=== PATIENT | female | born 1980 | race Caucasian/White ===

== ENCOUNTER → 2020-08-21 | Outpatient (CLI) | payer OTHER ==
--- NOTE | 2020-08-23 00:02 | ECWPNPC ---
PATIENT NAME: MAIDA CHILDS : 1980 GENDER: FEMALE VISIT DATE: 08/21/2020 DISCHARGE DATE: 08/21/20 0000 VISIT LOCKED DATE TIME: PHYSICIAN: LISA ERICKSON RESOURCE: LISA ERICKSON REASON FOR APPOINTMENT 1. LOW BACK.NECK,FIBRO,OSTEOARTHRITIS HISTORY OF PRESENT ILLNESS GENERAL: - - -. FALL RISK SCREENING: SCREENING : NO FALLS REPORTED IN THE LAST YEAR , : NO FALLS REPORTED IN THE LAST YEAR. PAIN SCREENING: PATIENT HAS A COMPLAINT OF ACUTE OR CHRONIC PAIN :YES LOCATION OF PAIN:NECK, LOW BACK INTENSITY OF PAIN (SCALE OF 1 TO 10):10 WHAT DOES YOUR PAIN FEEL LIKE:ACHING, CONTINOUS, SHARP, STABBING DURATION:CONTINOUS, CONSTANT PAIN IS INCREASED BY:ACTIVITIES, PROLONGED STANDING PAIN IS DECREASED BY:USE OF PAIN MEDICATIONS, OTHERS NURSING NOTE: - - -. PAIN CENTER INTAKE QUESTIONS: DO YOU HAVE A HISTORY OF MRSA? :NO DO YOU TAKE A BLOOD THINNERS? :NO DO YOU HAVE ANY BLEEDING DISORDERS? :NO ANY NEW NUMBNESS OR WEAKNESS IN YOUR LEGS OR ARMS? :NO ANY PACEMAKER,DEFIBRILLATOR, OR DORSAL COLUMN STIMULATOR? :NO DO YOU HAVE ANY RASHES OR OPEN SORES? :NO ARE YOU ALLERGIC TO IV DYE? :NO ARE YOU DIABETIC? :NO ANY NEW PROBLEMS WITH YOUR MEDICATIONS? :NO HAVE YOU RECEIVED A VACCINE IN THE PAST 30 DAYS? :NO DO YOU PLAN TO RECEIVE A VACCINE IN THE NEXT 21 DAYS? :NO DO YOU NEED ANY PRESCRIPTION? :NO DO YOU TAKE ANY IMMUNOSUPPRESSIVE MEDICATIONS? :NO CURRENT MEDICATIONS TAKING ATORVASTATIN CALCIUM 10 MG TABLET 1 TABLET ORALLY ONCE A DAY TAKING LOSARTAN POTASSIUM-HCTZ 50-12.5 MG TABLET 1 TABLET ORALLY ONCE A DAY TAKING SYNTHROID 200 MCG TABLET 1 TABLET IN THE MORNING ON AN EMPTY STOMACH ORALLY ONCE A DAY TAKING FERROUS SULFATE 325 (65 FE) MG TABLET 1 TABLET ORALLY ONCE A DAY TAKING IBUPROFEN 600 MG TABLET 1 TABLET WITH FOOD OR MILK NEEDED ORALLY THREE TIMES A DAY TAKING HYDROCODONE-ACETAMINOPHEN 5-325 MG TABLET 1 TABLET NEEDED ORALLY EVERY 6 HRS TAKING NEXIUM 40 MG CAPSULE DELAYED RELEASE 1 CAPSULE ORALLY ONCE A DAY MEDICATION LIST REVIEWED AND RECONCILED WITH THE PATIENT PAST MEDICAL HISTORY GERD HYPOTHYROIDISM COLLAPSED ARCHES CHRONIC NECK AND BACK PAIN ALLERGIES SEPTRA: HIVES - SIDE EFFECTS PENICILLIN G SODIUM: HIVES - SIDE EFFECTS MORPHINE SULFATE: RASH - SIDE EFFECTS SURGICAL HISTORY /TUBAL 2018 2X CHOLECYSTECTOMY TONSILLECTOMY RIGHT CARPAL TUNNEL FAMILY HISTORY FATHER: ALIVE, DIAGNOSED WITH HYPERTENSION MOTHER: ALIVE, HYPERTENSION, UNSPECIFIED HEART DISEASE SIBLINGS: ALIVE SON(S): ALIVE 4 BROTHER(S) , 3 SISTER(S) - HEALTHY. 3 SON(S) - HEALTHY. SOCIAL HISTORY GENERAL: TOBACCO USE ARE YOU A:CURRENT SMOKER ARE YOU INTERESTED IN QUITTING?NOT READY TO QUIT COUNSELED THE PATIENT ON SMOKING EFFECTS, EDUCATION [id number]/12/2021 PATIENT COUNSELED ON THE DANGERS OF TOBACCO USE AND URGED TO QUIT:08/21/2020 LATEX QUESTIONNAIRE LATEX ALLERGY : HAVE YOU EVER DEVELOPED ANY TYPE OF REACTION AFTER HANDLING LATEX PRODUCTS SUCH RUBBER GLOVES, CONDOMS, DIAPHRAGMS, BALLOONS, SOCKS, OR UNDERWEAR?NO LATEX ALLERGY : HAVE YOU EVER DEVELOPED ANY TYPE OF REACTION DURING OR AFTER DENTAL APPOINTMENT, VAGINAL/RECTAL EXAMINATION, SURGICAL PROCEDURE, OR ANY OTHER EXPOSURE?NO LATEX RISK : HAVE YOU EVER HAD ANY DIFFICULTY BREATHING OR HIVES AFTER EATING OR HANDLING ANY FRUITS, OR VEGETABLES; SUCH KIWI, BANANAS, STONE FRUITS, OR CHESTNUTSNO LATEX RISK : DO YOU HAVE A PREVIOUS PERSONAL HISTORY OF MORE THAN NINE SURGERIES, SPINA BIFIDA, OR REPEATED CATHERIZATIONS? NO LATEX RISK : ARE YOU FREQUENTLY EXPOSED TO LATEX PRODUCTS IN YOUR OCCUPATION?NO DATE ASKED : 08/21/2020 ALCOHOL USE: NO. RECREATIONAL DRUG USE: NEVER DRUG USE?NO LANGUAGE LANGUAGES SPOKEN:IRANIAN LEARNING BARRIERS / SPECIAL NEEDS HEARING IMPAIRED?NO VISION IMPAIRED?YES :CORRECTIVE LENSES SPECIAL DEVICES?NO FLIGHT FOLLOWER NEEDED?NO HOSPITALIZATION/MAJOR DIAGNOSTIC PROCEDURE VITAL SIGNS WT 197.6 LBS, HT 63 IN, BMI 35.00 INDEX, BP 214/122 MM HG, HR 72 /MIN, RR 18 /MIN, TEMP 96.5 F, OXYGEN SAT % 100%, SAFE IN ENV? (Y/N) YES, NA INITIALS SC 15:02MA WILL RECHECK PT'S BP.PATIENT STATED THAT SHE DID NOT TAKE BLOOD PRESSURE MEDICATION RODRIGUE SINGH. TREATMENT OTHERS NOTES: PATIENT TRANSFERRED TO ED GIVEN ELEVATED BP. . CLINICAL NOTES: PER LISA, PATIENT TAKEN OVER TO ER FOR ELEVATED BP. THIS CYBER SECURITY ARCHITECT BROUGHT PATIENT TO ER IN WHEELCHAIR. PATIENT BROUGHT TO ER TRIAGE NURSES AND TOLD TO WAIT IN WAITING ROOM. PATIENT RECIEVED FROM ER NURSES AND REPORT GIVEN. PATIENT AWAKE, ALERT AND ORIENTED X3 THROUGHOUT THE TIME WITH THIS CYBER SECURITY ARCHITECT, PATIENT REPORTS FEELING ASYMPTOMATIC DESPITE ELEVATED BLOOD PRESSURE. Jose MESSER RN. PROCEDURE CODES FA211 ESTABILISHED PATIENT [facility] CHARGE DISPOSITION & COMMUNICATION ELECTRONICALLY SIGNED BY SURY CATHERINE ON 08/22/2020 AT 09:11 AM EDT DISCLAIMER : THIS IS A VISIT SUMMARY EXTRACTED FROM THE [employer] CHART. IT IS NOT A COPY OF THE [employer] PROGRESS NOTE. KYLE
== END ==
LOC: M PAIN 14:45
PROVIDERS: ATTEND Family Medicine
DX: M54.5 Low back pain (principal); Z53.9 Procedure and treatment not carried out, unspecified reason

== ENCOUNTER → 2020-09-01 | Outpatient (CLI) | payer OTHER ==
--- NOTE | 2020-09-04 23:31 | ECWPNPC ---
PATIENT NAME: MAIDA GARNER : 1980 GENDER: FEMALE VISIT DATE: 09/01/2020 DISCHARGE DATE: 09/01/20 0000 VISIT LOCKED DATE TIME: PHYSICIAN: LISA ERICKSON RESOURCE: LISA ERICKSON REASON FOR APPOINTMENT 1. NECK/BACK HISTORY OF PRESENT ILLNESS DEPRESSION SCREENING: PHQ-2 (2015 EDITION) LITTLE INTEREST OR PLEASURE IN DOING THINGS?NOT AT ALL FEELING DOWN, DEPRESSED, OR HOPELESS?NOT AT ALL TOTAL SCORE0 40-YEAR-OLD FEMALE IN FOR INITIAL PAIN CONSULT REGARDING NECK AND BACK PAIN. PATIENT WAS A PREVIOUS PAIN PATIENT AT [facility] AND ADMITS THAT SHE DID NOT LIKE THE PROVIDER THAT SHE WAS SEEING UP THERE SHE FELT HE MADE FUN OF HER AND WAS UNPROFESSIONAL. SHE WAS BEING PRESCRIBED HYDROCODONE 10/325 MG BY HER PRIMARY HOWEVER HER PRIMARY RETIRED AND THE PROVIDER THAT TOOK OVER FOR HER PRIMARY DECREASED HER MEDICATIONS TO 5/325 MG AND PATIENT WAS DISPLEASED WITH THE DECREASE IN MEDICATION. SHE PRESENTS TODAY FOR FURTHER EVALUATION. GENERAL: -. FALL RISK SCREENING: SCREENING : NO FALLS REPORTED IN THE LAST YEAR. PAIN SCREENING: PATIENT HAS A COMPLAINT OF ACUTE OR CHRONIC PAIN :YES LOCATION OF PAIN:NECK, LOW BACK INTENSITY OF PAIN (SCALE OF 1 TO 10):10 WHAT DOES YOUR PAIN FEEL LIKE:ACHING, BURNING, SHARP, STABBING, THROBBING, SORE, SHOOTING DURATION:CONTINOUS, CONSTANT, ALL DAY, AWAKENS FROM SLEEP PAIN IS INCREASED BY:ACTIVITIES PAIN IS DECREASED BY:USE OF PAIN MEDICATIONS NURSING NOTE: -. PAIN CENTER INTAKE QUESTIONS: DO YOU HAVE A HISTORY OF MRSA? :NO DO YOU TAKE A BLOOD THINNERS? :NO DO YOU HAVE ANY BLEEDING DISORDERS? :NO ANY NEW NUMBNESS OR WEAKNESS IN YOUR LEGS OR ARMS? :NO ANY PACEMAKER,DEFIBRILLATOR, OR DORSAL COLUMN STIMULATOR? :NO DO YOU HAVE ANY RASHES OR OPEN SORES? :NO ARE YOU ALLERGIC TO IV DYE? :NO ARE YOU DIABETIC? :NO ANY NEW PROBLEMS WITH YOUR MEDICATIONS? :NO HAVE YOU RECEIVED A VACCINE IN THE PAST 30 DAYS? :NO DO YOU PLAN TO RECEIVE A VACCINE IN THE NEXT 21 DAYS? :NO DO YOU NEED ANY PRESCRIPTION? :NO DO YOU TAKE ANY IMMUNOSUPPRESSIVE MEDICATIONS? :NO CURRENT MEDICATIONS TAKING ATORVASTATIN CALCIUM 10 MG TABLET 1 TABLET ORALLY ONCE A DAY TAKING LOSARTAN POTASSIUM-HCTZ 50-12.5 MG TABLET 1 TABLET ORALLY ONCE A DAY TAKING SYNTHROID 200 MCG TABLET 1 TABLET IN THE MORNING ON AN EMPTY STOMACH ORALLY ONCE A DAY TAKING FERROUS SULFATE 325 (65 FE) MG TABLET 1 TABLET ORALLY ONCE A DAY TAKING IBUPROFEN 600 MG TABLET 1 TABLET WITH FOOD OR MILK NEEDED ORALLY THREE TIMES A DAY TAKING HYDROCODONE-ACETAMINOPHEN 5-325 MG TABLET 1 TABLET NEEDED ORALLY EVERY 6 HRS TAKING NEXIUM 40 MG CAPSULE DELAYED RELEASE 1 CAPSULE ORALLY ONCE A DAY MEDICATION LIST REVIEWED AND RECONCILED WITH THE PATIENT PAST MEDICAL HISTORY GERD HYPOTHYROIDISM COLLAPSED ARCHES CHRONIC NECK AND BACK PAIN DISC DISEASE ALLERGIES SEPTRA: HIVES - SIDE EFFECTS PENICILLIN G SODIUM: HIVES - SIDE EFFECTS MORPHINE SULFATE: RASH - SIDE EFFECTS SURGICAL HISTORY /TUBAL 2018 2X 2011/2004 CHOLECYSTECTOMY TONSILLECTOMY RIGHT CARPAL TUNNEL FAMILY HISTORY FATHER: ALIVE, DIAGNOSED WITH HYPERTENSION MOTHER: ALIVE, UNSPECIFIED HEART DISEASE, HYPERTENSION SIBLINGS: ALIVE SON(S): ALIVE 4 BROTHER(S) , 3 SISTER(S) - HEALTHY. 3 SON(S) - HEALTHY. SOCIAL HISTORY GENERAL: TOBACCO USE ARE YOU A:CURRENT SMOKER ARE YOU INTERESTED IN QUITTING?NOT READY TO QUIT COUNSELED THE PATIENT ON SMOKING EFFECTS, EDUCATION [id number]/23/2021 HOW MANY CIGARETTES A DAY DO YOU SMOKE?11-20 HOW SOON AFTER YOU WAKE UP DO YOU SMOKE YOUR FIRST CIGARETTE?WITHIN 5 MIN HOW OFTEN DO YOU SMOKE CIGARETTES?EVERY DAY PATIENT COUNSELED ON THE DANGERS OF TOBACCO USE AND URGED TO QUIT:08/21/2020 LATEX QUESTIONNAIRE LATEX ALLERGY : HAVE YOU EVER DEVELOPED ANY TYPE OF REACTION AFTER HANDLING LATEX PRODUCTS SUCH RUBBER GLOVES, CONDOMS, DIAPHRAGMS, BALLOONS, SOCKS, OR UNDERWEAR?NO LATEX ALLERGY : HAVE YOU EVER DEVELOPED ANY TYPE OF REACTION DURING OR AFTER DENTAL APPOINTMENT, VAGINAL/RECTAL EXAMINATION, SURGICAL PROCEDURE, OR ANY OTHER EXPOSURE?NO LATEX RISK : HAVE YOU EVER HAD ANY DIFFICULTY BREATHING OR HIVES AFTER EATING OR HANDLING ANY FRUITS, OR VEGETABLES; SUCH KIWI, BANANAS, STONE FRUITS, OR CHESTNUTSNO LATEX RISK : DO YOU HAVE A PREVIOUS PERSONAL HISTORY OF MORE THAN NINE SURGERIES, SPINA BIFIDA, OR REPEATED CATHERIZATIONS? NO LATEX RISK : ARE YOU FREQUENTLY EXPOSED TO LATEX PRODUCTS IN YOUR OCCUPATION?NO DATE ASKED : 09/01/2020 ALCOHOL USE: NO. RECREATIONAL DRUG USE: NEVER DRUG USE?NO LANGUAGE LANGUAGES SPOKEN:ITALIAN LEARNING BARRIERS / SPECIAL NEEDS CHANGE FROM LAST VISIT?NO BARRIERS TO LEARNING?NO HEARING IMPAIRED?NO VISION IMPAIRED?YES :CORRECTIVE LENSES COGNITIVELY IMPAIRED?NO READINESS TO LEARN?YES LEARNING PREFERENCES?NO LEARNING CAPABILITIES PRESENT?YES EMOTIONAL BARRIERS?NO SPECIAL DEVICES?NO MRI TECHNOLOGIST NEEDED?NO HOSPITALIZATION/MAJOR DIAGNOSTIC PROCEDURE 3X REVIEW OF SYSTEMS CONSTITUTIONAL: ANY RECENT FEVER NO . CHILLS NO . WEIGHT CHANGE OF UNKNOWN REASONS NO . MUSCULOSKELETAL: ANY UNUSUAL JOINT PAIN OR SWELLING NOT MENTIONED NO . SYSTEMIC LUPUS NO . ANY NEUROMUSCULAR DISORDER NOT MENTIONED NO . LYME DISEASE NO . GASTROENTEROLOGY: ANY NEW CHANGE IN BOWEL CONTROL? NO . HISTORY OF LIVER DISORDER NOT MENTIONED NO . HISTORY OF UNUSUAL ABDOMINAL PAIN OR CRAMPING NOT MENTIONED NO . NO CONSTIPATION. GENITOURINARY: ANY NEW CHANGE IN BLADDER CONTROL? NO . ANY RENAL/KIDNEY CONDITON NOT MENTIONED NO . NEUROLOGY: HISTORY OF TBI NOT MENTIONED NO . OTHER NEW NUMBNESS OR PAIN PATTERNS NOT MENTIONED NO . NEW ONSET DIZZINESS OR NEUROLOGICAL CHANGES NOT MENTIONED NO . HISTORY OF SEVERE HEADACHES NOT MENTIONED NO . HISTORY OF STROKE OR NEUROLOGICAL DISORDER NOT MENTIONED NO . CARDIOLOGY: HEART SURGERY NO . CONGESTIVE HEART FAILURE/FLUID OVERLOAD NOT MENTIONED NO . HISTORY OF CHEST PAIN,IRREGULAR HEART BEAT NOT MENTIONED NO . RESPIRATORY: SHORTNESS OF BREATH ON EXERTION, WHEEZES, UNUSUAL COUGH NOT MENTIONED NO . ENDOCRINOLOGY: ADRENAL GLAND OR THYROID DISORDERS NOT MENTIONED NO . UNUSUAL URINATION, DIZZINESS OR LETHARGY NOT MENTIONED NO . VITAL SIGNS WT 193 LBS, HT 63 IN, BMI 34.18 INDEX, BP 176/111 MM HG, HR 93 /MIN, RR 18 /MIN, TEMP 97.7 F, OXYGEN SAT % 100, SAFE IN ENV? (Y/N) YESNOFITY PROVIDER ABOUT BP. PATIENT STATED THAT " SHE DID NOT TAKE HER BLOOD PRESSURE MEDICATION " CARO SINGH. EXAMINATION GENERAL EXAMINATION: GENERALNO ACUTE DISTRESS, WELL NOURISHED AND HYDRATED. PSYCHAPPROPRIATE MOOD AND AFFECT . LUNGS:CLEAR TO AUSCULTATION BILATERALLY, NO WHEEZES, RHONCHI, RALES. HEART:NO MURMURS, REGULAR RATE AND RHYTHM. BACK:EXQUISITELY TENDER ALONG CERVICAL AND LUMBAR SPINE, POSITIVE MODIFIED SLR BILATERALLY . ASSESSMENTS LOW BACK PAIN - M54.5 (PRIMARY) TREATMENT LOW BACK PAIN NOTES: 40-YEAR-OLD FEMALE IN FOR INITIAL PAIN CONSULT REGARDING NECK AND LOW BACK PAIN. DISCUSSED TREATMENT OPTIONS WITH PATIENT AND SHE DECLINES PROCEDURES AT THIS TIME STATING SHE IS AFRAID OF NEEDLES. PATIENT HAS REQUESTED THAT THIS SLITTING MACHINE OPERATOR HELPER INCREASE HER HYDROCODONE BACK TO ITS PREVIOUS DOSAGE OF 10/325 MG PATIENT WAS INFORMED THAT OFTEN OPIATES ARE NOT PRESCRIBED ON THE INITIAL CONSULT VISIT. WE DID DISCUSS OTHER MEDICATIONS TO INCLUDE THE USE OF DICLOFENAC AND MUSCLE RELAXERS. PATIENT REFUSED MUSCLE RELAXERS. PATIENT WAS INFORMED THAT THIS SLITTING MACHINE OPERATOR HELPER WOULD NOT PROVIDE HER WITH A PRESCRIPTION FOR OPIATES TODAY AND STATED HE WOULD PREFER TO RESEARCH THIS FURTHER. PATIENT WAS ALSO NOTED TO RECEIVE A PRESCRIPTION FOR HYDROCODONE 5/325 MG ON THE OF THIS MONTH FOR A 2 WEEK SUPPLY AND PATIENT ADMITS THAT SHE OVERUSES MEDICATION AND IS CURRENTLY OUT OF THAT MEDICATION. WHEN PATIENT LEARNED THAT THIS SLITTING MACHINE OPERATOR HELPER WOULD NOT PRESCRIBE OPIATES SHE REFUSED TO LEAVE THE CLINIC STATING THAT SHE HAD DRIVEN 2 HOURS TO RECEIVE THAT MEDICATION. PATIENT WAS AGAIN INFORMED BY NURSING THAT THE PROVIDER WOULD NOT PROVIDE PATIENT SAID MEDICATION AND PATIENT DID FINALLY LEAVE THE UNIT. OTHERS START DICLOFENAC SODIUM TABLET DELAYED RELEASE, 50 MG, 1 TABLET, ORALLY, TWICE A DAY, 30 DAY(S), 60 STOP IBUPROFEN TABLET, 600 MG, 1 TABLET WITH FOOD OR MILK NEEDED, ORALLY, THREE TIMES A DAY NOTES: PRINTED INFORMATION ON NEW MEDICATION DICLOFENAC FOR PATIENT RolandaMELISSA SINGH. PROCEDURE CODES FA211 ESTABILISHED PATIENT [facility] CHARGE DISPOSITION & COMMUNICATION FOLLOW UP 4 WEEKS (REAS[facility] ELECTRONICALLY SIGNED BY SURY CATHERINE ON 09/04/2020 AT 09:01 AM EDT DISCLAIMER : THIS IS A VISIT SUMMARY EXTRACTED FROM THE [employer] CHART. IT IS NOT A COPY OF THE [employer] PROGRESS NOTE. KYLE
== END ==
LOC: M PAIN 08:30
PROVIDERS: ATTEND Family Medicine
DX: M54.5 Low back pain (principal); K21.9 Gastro-esophageal reflux disease without esophagitis; E03.9 Hypothyroidism, unspecified; M54.2 Cervicalgia; Z79.891 Long term (current) use of opiate analgesic; Z79.899 Other long term (current) drug therapy; F17.210 Nicotine dependence, cigarettes, uncomplicated; Z88.0 Allergy status to penicillin; Z88.5 Allergy status to narcotic agent; Z88.8 Allergy status to other drugs, medicaments and biological substances